=== PATIENT | female | born 1955 | race Caucasian/White ===

== ENCOUNTER 2022-05-27 19:08 | Emergency (ER) | payer OTHER ==
[~2022-05-27] VITALS: Ht 152.4 cm; Wt 65.8 kg
[2022-05-27 19:14] VITALS: BP_SYST 123
--- NOTE | 2022-05-27 19:18 | NUR ---
PT SONJA FROM [place], PT REPORTS STARTING TO FEEL FAINT AND THEN LOC. PER EMT PATIENT WAS LOWERED TO FLOOR AND DENIES HEAD TRAUMA. BLOOD GLUCOSE ON SCENE WAS 176. PT REPORTS HX OF DIABETES, HTN , AND HLD. PT SPEAKING IN FULL SENTENCES, NO SIGNS OF RESP DISTRESS. VSS. PT ON GURNEY UNTIL BED OPENS.
[2022-05-27 20:46] LABS: BASOPHILS % (AUTO) 0.4 % (0.0-2.0); EOSINOPHILS % (AUTO) 0.4 % (0.0-4.0); HEMATOCRIT 37.5 % (36-48); HEMOGLOBIN 12.6 g/dL (12.0-16.0); LYMPHOCYTES # (AUTO) 1.5 K/uL (1.0-5.5); LYMPHOCYTES % (AUTO) 17.2 % (20.5-51.5); MEAN CORPUSCULAR HEMOGLOBIN 29 pg (27-31); MEAN CORPUSCULAR HGB CONC 34 % (32-36); MEAN CORPUSCULAR VOLUME 87 fL (79.0-98.0); MONOCYTES # (AUTO) 0.6 K/uL (0.0-1.0); MONOCYTES % (AUTO) 7.2 % (1.7-9.3); NEUTROPHILS # (AUTO) 6.6 K/uL (1.8-7.7); NEUTROPHILS % (AUTO) 74.8 % (40.0-70.0); PLATELET COUNT (AUTO) 298 K/uL (130-430); RED BLOOD CELL COUNT(AUTO) 4.32 MIL/uL (4.2-6.2); RED CELL DISTRIBUTION WIDTH 14.7 % (9.0-15.0); WHITE BLOOD COUNT (AUTO) 8.8 K/uL (4.8-10.8)
[2022-05-27 20:59] LABS: ANION GAP 10 (5-15); CALCIUM 9.4 mg/dL (8.4-11.0); CHLORIDE 105 mmol/L (98-107); CREATININE 1.27 mg/dL (0.55-1.30); GLUCOSE 103 mg/dL (70-99); POTASSIUM 3.9 mmol/L (3.5-5.1); SODIUM SERUM 142 mmol/L (136-145); UREA NITROGEN, BLOOD 23 mg/dL (8-21)
[2022-05-27 21:00] LABS: GFR AFRICAN AMERICAN 54 mL/min (>90)
--- NOTE | 2022-05-27 21:00 | NUR ---
[facility] AMB # [id number]. REPORT FROM EMT. PT WAS AT A FAILY GATHERING FROM A PARK. S/P SYNCOPAL EPISODE X1 WITH LOC. HX; HTN, CHOL, "PRE-DIABETIC", no eating or drinking water today "IN THE HEAT OUTSIDE". PT ARRIVED A/O X4, CLEAR SPEECH, NO C/O OF HAYS, N/V/ OR FEVER. VSS CONTINUED MONITORING
[2022-05-27 21:03] LABS: ALANINE AMINOTRANSFERASE 22 U/L (12-78); ALBUMIN 3.6 g/dL (3.4-4.8); ASPARTATE AMINOTRANSFERASE 19 U/L (10-37); TOTAL BILIRUBIN 0.2 mg/dL (0.0-1.0)
[2022-05-27] MEDS ORDERED: ACETAMINOPHEN 500 MG TABLET PO ONE (23:15)
[2022-05-27] MEDS ORDERED: ACETAMINOPHEN 500 MG TABLET ONE (23:19)
[2022-05-27 23:25] VITALS: BP_SYST 132
--- NOTE | 2022-05-27 23:26 | NUR ---
PT STABLE FOR D/C TO HOME WITH DAUGHTER. C/O BLE LEG CRAMPS. ER MD ORDERS GIVEN/ EMAR. PT VERBALIZES UNDERSTANDING OF AFTERCARE, WILL CALL [facility] IN AM FOR F/U APPT. TO LOBBY AMB WITH ALL PAPERWORK IN HAND
== END 2022-05-27 22:23 | disposition home or self-care (01) ==
LOC: SED 19:08
DX: R55 Syncope and collapse (principal); E11.9 Type 2 diabetes mellitus without complications; I10 Essential (primary) hypertension; E78.5 Hyperlipidemia, unspecified; Z79.899 Other long term (current) drug therapy
CPT/HCPCS: 36415; 70450-TC; 71045; 76376; 80053; 83605; 84484; 85025; 93005; 99285